=== PATIENT | female | born 1980 | race Caucasian/White ===

== ENCOUNTER 2018-01-12 08:00 | Outpatient (CLI) | payer OTHER | END 2018-01-12 23:59 | LOC: LAB.R 08:00 | PROVIDERS: ATTEND Registered Nurse | DX: Z11.3 Encounter for screening for infections with a predominantly sexual mode of transmission (principal) | CPT/HCPCS: 87491; 87591 ==

== ENCOUNTER 2019-02-02 09:11 | Outpatient (CLI) | payer BC ==
[2019-02-02 18:28] LABS: CHOL/HDL RATIO 3.1 (<4.4); CHOLESTEROL 185 mg/dL; GLUCOSE,FASTING 88 mg/dL (70-100); HDL CHOLESTEROL 59 mg/dL; LDL CHOLESTEROL,CALCULATED 115 mg/dL; LDL/HDL RATIO 1.9 (<4.4); VLDL CHOLESTEROL 11 mg/dL
[2019-02-02 18:36] LABS: CORTISOL 10.7 ug/dL
[2019-02-02 18:38] LABS: THYROID STIMULATING HORMONE 1.37 uIU/mL (0.34-5.60)
[2019-02-02 18:45] LABS: FERRITIN 29.8 ng/mL (11.0-306.8)
== END 2019-02-02 09:12 | disposition home or self-care (01) ==
LOC: LAB.S 09:11
DX: R63.5 Abnormal weight gain (principal); R53.83 Other fatigue
CPT/HCPCS: 36415; 80061; 81599; 82306; 82533; 82607; 82626; 82728; 82947; 83525; 83721; 84402; 84403; 84443

== ENCOUNTER 2022-03-13 08:00 | Outpatient (CLI) | payer BC | END 2022-03-13 23:59 | disposition home or self-care (01) | LOC: LAB.S 08:00 | PROVIDERS: ATTEND Physician Assistant Medical | DX: J02.9 Acute pharyngitis, unspecified (principal) | CPT/HCPCS: 87070 ==